=== PATIENT | female | born 1965 | race Caucasian/White ===

== ENCOUNTER 2017-02-23 14:00 | Emergency (ER) | payer OTHER ==
[2017-02-23 14:07] VITALS: BP 113/66
[2017-02-23] MEDS ORDERED: Tetan/Diph/Pertus SYR(Tdap)* 0.5 ML SYR(BOOSTRIX) use SYR IM ONE (15:21)
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
== END 2017-02-23 16:12 | disposition home or self-care (01) ==
LOC: ED 14:00
DX: S61.211A Laceration without foreign body of left index finger without damage to nail, initial encounter (principal); S51.812A Laceration without foreign body of left forearm, initial encounter; W25.XXXA Contact with sharp glass, initial encounter; Y93.9 Activity, unspecified; Y92.9 Unspecified place or not applicable
CPT/HCPCS: 90715; 99282